=== PATIENT | female | born 1930 | race Caucasian/White ===

== ENCOUNTER 2016-12-29 08:22 | Day surgery (SDC) | payer MEDICARE ==
[~2016-12-29 08:22] MED LIST: ASPIRIN EC81 MG PO; ASPIRIN81 M1 PO; ATENOLOL25 M1 PO; CLARINEX5 MG; EFFEXOR XR150 M1 PO; EFFEXOR XR150 MG; GLIPIZIDE5 M2 PO; GLIPIZIDE5 MG; IBUPROFEN200 MG; LIPITOR20 M1 PO; LISINOPRIL40 M1 PO; MAXZIDE-25 MG1 UDTAB; METFORMIN HCL500 M1 PO; NORVASC5 M2 PO; NORVASC5 MG PO; OMEPRAZOLE20 M3 PO; OMEPRAZOLE20 MG; SIMVASTATIN20 MG PO; SPIRIVA18 MC1 INH; TRAZODONE HCL150 M1 PO; TRAZODONE HCL150 MG; TYLENOL325 M2 PO; TYLENOL325 MG; ULTRAM50 MG PO; VITAMIN E400 UNIT; VYTORIN 10/40 T1 TAB; XANAX0.5 M1 PO; [UNRECOGNIZED DRUG - OTHER] TOP; [UNRECOGNIZED DRUG - OTHER] TP
[2016-12-29] MEDS ORDERED: PEDIA LAX PO (09:22)
[2016-12-29 09:48] LABS: BASO % 0.3 % (0-2); BASO ABSOLUTE COUNT 0.1 tho/cmm (0.0-0.2); EOS % 4.8 % (0-7); EOSINOPHIL ABSOLUTE COUNT 0.7 tho/cmm (0.0-0.7); HCT-HEMATOCRIT 30.4 % (34.0-49.0); HGB-HEMOGLOBIN 9.8 gm/dl (12.0-15.5); IMMATURE GRANULOCYTES ABSOLUTE 0.04 tho/cmm (0-0.03); IMMATURE GRANULOCYTES PERCENT 0.3 % (0-0.3); LYMPH % 17.1 % (20-45); LYMPH ABSOLUTE COUNT 2.5 tho/cmm (0.8-4.5); MCH (MEAN CORPUSCULAR HGB) 30.9 pg (28.0-32.0); MCHC MEAN CORPUSCULAR HGB CONC 32.2 % (32.0-36.0); MCV (MEAN CELL VOLUME) 95.9 fl (82.0-96.0); MEAN PLATELET VOLUME 9.8 cmc (9.4-12.4); MONO % 10.8 % (0-12); MONOCYTE ABSOLUTE COUNT 1.6 tho/cmm (0.0-1.2); NEUTROPHIL ABSOLUTE COUNT 9.6 tho/cmm (1.6-8.0); NEUTROPHIL-AUTOMATED 9.6 tho/cmm (1.6-8.0); NEUTROPHILS % 66.7 % (40-80); PLATELET COUNT 299 tho/cmm (150-450); RED BLOOD COUNT 3.17 mil/cmm (4.00-5.20); WHITE BLOOD COUNT 14.4 tho/cmm (4.0-10.0)
[2016-12-29 10:03] LABS: PROTHROMBIN TIME 11.3 SECONDS (9.0-13.6)
[2016-12-29 10:10] LABS: ANION GAP 15 mmol/L (0-20); BLOOD UREA NITROGEN 54 mg/dl (6-24); CALCIUM 8.5 mg/dl (8.5-10.5); CARBON DIOXIDE-VENOUS 23 mmol/L (22-32); CHLORIDE 103 mmol/l (96-110); CREATININE 6.07 mg/dl (0.50-1.10); GLUCOSE 124 mg/dL (70-110); POTASSIUM 5.4 mmol/L (3.7-5.1); SODIUM 136 mmol/L (135-145); eGFR VALUE FOR BLACK 7 mL/Min
[2017-02-03] MEDS ORDERED: TENORMIN25 M1 PO (14:55)
[2017-02-03] MEDS ORDERED: CALCITRIOL0.25 MC1 PO (14:56)
[2017-02-04] MEDS ORDERED: MELATONIN5 M6 PO (16:50)
[2017-02-04] MEDS ORDERED: TOPROL XL50 M1 PO (16:50)
[2017-02-04] MEDS ORDERED: PROVENTIL HFA6.7 G1 INH (16:54)
[2017-02-04] MEDS ORDERED: VIBRAMYCIN100 M1 PO (16:58)
[2017-02-04] MEDS ORDERED: AMIODARONE HCL200 M1 PO (17:06)
== END 2016-12-29 18:10 ==
LOC: SHSC 08:22 → ORW 11:21 → SHSC 11:57
PROVIDERS: Surgery Vascular Surgery
PROC: 0JH60XZ Insertion of Tunneled Vascular Access Device into Chest Subcutaneous Tissue and Fascia, Open Approach (ICD-10-PCS; principal; 2016-12-29)
PROC: 05HM33Z Insertion of Infusion Device into Right Internal Jugular Vein, Percutaneous Approach (ICD-10-PCS; 2016-12-29)
PROC: B513ZZA Fluoroscopy of Right Jugular Veins, Guidance (ICD-10-PCS; 2016-12-29)
DX: I12.0 Hypertensive chronic kidney disease with stage 5 chronic kidney disease or end stage renal disease (principal); E11.22 Type 2 diabetes mellitus with diabetic chronic kidney disease; N18.6 End stage renal disease; D63.1 Anemia in chronic kidney disease; E66.9 Obesity, unspecified; J44.9 Chronic obstructive pulmonary disease, unspecified; F17.210 Nicotine dependence, cigarettes, uncomplicated; F41.9 Anxiety disorder, unspecified; Z79.82 Long term (current) use of aspirin; Z79.84 Long term (current) use of oral hypoglycemic drugs; Z79.899 Other long term (current) drug therapy; Z88.0 Allergy status to penicillin; Z88.2 Allergy status to sulfonamides; Z91.048 Other nonmedicinal substance allergy status; Z86.73 Personal history of transient ischemic attack (TIA), and cerebral infarction without residual deficits; Z90.49 Acquired absence of other specified parts of digestive tract; Z90.710 Acquired absence of both cervix and uterus; Z98.890 Other specified postprocedural states; Z99.2 Dependence on renal dialysis
CPT/HCPCS: C1750; G0257; J0885; J1644; J3370; J7030

== ENCOUNTER 2017-01-02 10:12 | Inpatient (IN) | payer MEDICARE, OTHER ==
[~2017-01-02 10:12] MED LIST changes: +PEDIA LAX PO
[2017-01-02] MEDS ORDERED: NORVASC5 M2 PO (10:19)
[2017-01-02] MEDS ORDERED: NORVASC2.5 M1 PO (10:20)
[2017-01-02] MEDS ORDERED: ROCALTROL0.25 MC1 PO (10:22)
[2017-01-02] MEDS ORDERED: HEMODIALYSIS IV (10:57)
[2017-01-02] MEDS ORDERED: HEPARIN SO1000 UNIT2 IV (11:02)
[2017-01-02] MEDS ORDERED: VOLTAREN100 G1 TP (11:03)
[2017-01-02] MEDS ORDERED: TYLENOL325 M2 PO (11:03)
[2017-01-02] MEDS ORDERED: VENTOLIN HFA18 G2 INH (11:04)
[2017-01-02] MEDS ORDERED: VENOFER100 MG/52 IVP (11:05)
[2017-01-02] MEDS ORDERED: EPOGEN4000 UNIT/ IVP (11:06)
[2017-01-02] MEDS ORDERED: BENADRYL25 M3 PO (11:08)
[2017-01-02] MEDS ORDERED: DIPHENHYDR50 MG/1 M2 IVP (11:08)
[2017-01-02] MEDS ORDERED: TYLENOL EXTRA500 M1 PO (11:09)
[2017-01-02] MEDS ORDERED: NORCO 5-325 TA1 EACH PO (11:15)
[2017-01-02 11:27] LABS: BASO % 0.2 % (0-2); EOS % 2.2 % (0-7); EOSINOPHIL ABSOLUTE COUNT 0.4 tho/cmm (0.0-0.7); HCT-HEMATOCRIT 29.8 % (34.0-49.0); HGB-HEMOGLOBIN 9.2 gm/dl (12.0-15.5); IMMATURE GRANULOCYTES ABSOLUTE 0.08 tho/cmm (0-0.03); IMMATURE GRANULOCYTES PERCENT 0.5 % (0-0.3); LYMPH % 6.7 % (20-45); LYMPH ABSOLUTE COUNT 1.1 tho/cmm (0.8-4.5); MCH (MEAN CORPUSCULAR HGB) 30.5 pg (28.0-32.0); MCHC MEAN CORPUSCULAR HGB CONC 30.9 % (32.0-36.0); MCV (MEAN CELL VOLUME) 98.7 fl (82.0-96.0); MEAN PLATELET VOLUME 9.4 cmc (9.4-12.4); MONO % 15.2 % (0-12); MONOCYTE ABSOLUTE COUNT 2.4 tho/cmm (0.0-1.2); NEUTROPHIL ABSOLUTE COUNT 11.9 tho/cmm (1.6-8.0); NEUTROPHIL-AUTOMATED 11.9 tho/cmm (1.6-8.0); NEUTROPHILS % 75.2 % (40-80); PLATELET COUNT 259 tho/cmm (150-450); RED BLOOD COUNT 3.02 mil/cmm (4.00-5.20); RED CELL DISTRIBUTION WIDTH 14.6 % (12.4-16.4); WHITE BLOOD COUNT 15.8 tho/cmm (4.0-10.0)
[2017-01-02 11:48] LABS: ALB/GLOB RATIO 0.6 (0.8-2.0); ALBUMIN 2.6 g/dl (3.5-5.0); ALKALINE PHOSPHATASE 62 U/L (33-138); ANION GAP 14 mmol/L (0-20); AST/SGOT 12 U/L (10-40); BILIRUBIN,TOTAL 0.4 mg/dl (0-1.5); BLOOD UREA NITROGEN 25 mg/dl (6-24); CALCIUM 8.1 mg/dl (8.5-10.5); CARBON DIOXIDE-VENOUS 25 mmol/L (22-32); CHLORIDE 98 mmol/l (96-110); CREATININE 4.61 mg/dl (0.50-1.10); GLUCOSE 152 mg/dL (70-110); MAGNESIUM 3.4 mg/dl (1.3-2.6); POTASSIUM 3.8 mmol/L (3.7-5.1); SODIUM 133 mmol/L (135-145); eGFR VALUE FOR BLACK 9 mL/Min
[2017-01-02 11:51] LABS: ALT/SGPT <10 U/L (12-78)
[2017-01-02 12:33] LABS: PROCALCITONIN 0.25 ng/ml (0.05-0.09)
[2017-01-02 14:17] LABS: PROTHROMBIN TIME 12.1 SECONDS (9.0-13.6)
[2017-01-02 14:38] LABS: TSH-THYROID STIMULATING HORM. 1.46 uIU/ml (0.40-3.80)
[2017-01-02 22:51] LABS: ABG CO2 ARTERIAL 27 mmol/L (21-27); ARTERIAL BLD GAS O2 SATURATION 97 % (95-98); ARTERIAL BLOOD GAS PCO2 48 mmHg (32-45); ARTERIAL PO2 89 mmHg (70-100); BICARBONATE 26 mmol/L (21-28); BLOOD GAS BASE EXCESS 0 mM/L (-/+3); PH 7.35 Units (7.35-7.45)
[2017-01-02 22:59] LABS: HCT-HEMATOCRIT 28.1 % (34.0-49.0); HGB-HEMOGLOBIN 8.8 gm/dl (12.0-15.5); MCH (MEAN CORPUSCULAR HGB) 30.9 pg (28.0-32.0); MCHC MEAN CORPUSCULAR HGB CONC 31.3 % (32.0-36.0); MCV (MEAN CELL VOLUME) 98.6 fl (82.0-96.0); MEAN PLATELET VOLUME 9.5 cmc (9.4-12.4); NEUTROPHIL-AUTOMATED 7.6 tho/cmm (1.6-8.0); PLATELET COUNT 276 tho/cmm (150-450); RED BLOOD COUNT 2.85 mil/cmm (4.00-5.20); RED CELL DISTRIBUTION WIDTH 14.6 % (12.4-16.4)
[2017-01-02 23:01] LABS: INR 1.1 INR (0.9-1.1); PROTHROMBIN TIME 12.5 SECONDS (9.0-13.6)
[2017-01-02 23:11] LABS: ALB/GLOB RATIO 0.6 (0.8-2.0); ALBUMIN 2.4 g/dl (3.5-5.0); ALKALINE PHOSPHATASE 59 U/L (33-138); ALT/SGPT 10 U/L (12-78); ANION GAP 14 mmol/L (0-20); AST/SGOT 14 U/L (10-40); BILIRUBIN,TOTAL 0.4 mg/dl (0-1.5); BLOOD UREA NITROGEN 30 mg/dl (6-24); CALCIUM 7.7 mg/dl (8.5-10.5); CARBON DIOXIDE-VENOUS 25 mmol/L (22-32); CHLORIDE 99 mmol/l (96-110); CREATININE 4.95 mg/dl (0.50-1.10); GLUCOSE 162 mg/dL (70-110); POTASSIUM 3.7 mmol/L (3.7-5.1); SODIUM 134 mmol/L (135-145); eGFR VALUE FOR BLACK 9 mL/Min
[2017-01-02 23:29] LABS: PROCALCITONIN 0.25 ng/ml (0.05-0.09)
[2017-01-02 23:33] LABS: BAND % 1 % (0-20); BAND ABSOLUTE COUNT 0.1 tho/cmm (0-2.0); EOSINOPHIL % 7 % (0-7)
[2017-01-03 03:18] LABS: URINE APPEARANCE CLEAR; URINE BILIRUBIN NEGATIVE (NEG); URINE BLOOD LARGE (NEG); URINE COLOR YELLOW; URINE GLUCOSE (UA) NEGATIVE (NEG); URINE KETONE NEGATIVE (NEG); URINE LEUKOCYTE ESTERASE NEGATIVE (NEG); URINE NITRITE NEGATIVE (NEG); URINE PROTEIN NEGATIVE (NEG)
[2017-01-03 03:20] LABS: URINE EPITHELIAL CELLS 0-2 /[HPF] (0-10); URINE RBC 0-2 /[HPF] (0-5); URINE WBC 0-2 /[HPF] (0-5)
[2017-01-03 03:56] LABS: BASO % 0.2 % (0-2); EOSINOPHIL ABSOLUTE COUNT 0.3 tho/cmm (0.0-0.7); HGB-HEMOGLOBIN 8.8 gm/dl (12.0-15.5); IMMATURE GRANULOCYTES ABSOLUTE 0.08 tho/cmm (0-0.03); IMMATURE GRANULOCYTES PERCENT 0.5 % (0-0.3); LYMPH % 5.6 % (20-45); MCH (MEAN CORPUSCULAR HGB) 30.6 pg (28.0-32.0); MCHC MEAN CORPUSCULAR HGB CONC 31.4 % (32.0-36.0); MCV (MEAN CELL VOLUME) 97.2 fl (82.0-96.0); MEAN PLATELET VOLUME 9.5 cmc (9.4-12.4); MONO % 19.8 % (0-12); MONOCYTE ABSOLUTE COUNT 3.4 tho/cmm (0.0-1.2); NEUTROPHIL ABSOLUTE COUNT 12.2 tho/cmm (1.6-8.0); NEUTROPHIL-AUTOMATED 12.2 tho/cmm (1.6-8.0); NEUTROPHILS % 71.9 % (40-80); PLATELET COUNT 267 tho/cmm (150-450); RED BLOOD COUNT 2.88 mil/cmm (4.00-5.20); RED CELL DISTRIBUTION WIDTH 14.2 % (12.4-16.4)
[2017-01-03 04:04] LABS: ALBUMIN 2.3 g/dl (3.5-5.0); ANION GAP 12 mmol/L (0-20); BLOOD UREA NITROGEN 31 mg/dl (6-24); CALCIUM 7.8 mg/dl (8.5-10.5); CARBON DIOXIDE-VENOUS 26 mmol/L (22-32); CHLORIDE 98 mmol/l (96-110); CREATININE 5.17 mg/dl (0.50-1.10); GLUCOSE 229 mg/dL (70-110); MAGNESIUM 3.6 mg/dl (1.3-2.6); PHOSPHOROUS 2.6 mg/dl (2.5-4.9); POTASSIUM 3.7 mmol/L (3.7-5.1); SODIUM 132 mmol/L (135-145); eGFR VALUE FOR BLACK 8 mL/Min
[2017-01-04 03:37] LABS: BASO % 0.3 % (0-2); EOS % 5.8 % (0-7); EOSINOPHIL ABSOLUTE COUNT 0.6 tho/cmm (0.0-0.7); HCT-HEMATOCRIT 26.1 % (34.0-49.0); HGB-HEMOGLOBIN 8.4 gm/dl (12.0-15.5); IMMATURE GRANULOCYTES ABSOLUTE 0.03 tho/cmm (0-0.03); IMMATURE GRANULOCYTES PERCENT 0.3 % (0-0.3); LYMPH % 19.4 % (20-45); LYMPH ABSOLUTE COUNT 2.2 tho/cmm (0.8-4.5); MCH (MEAN CORPUSCULAR HGB) 31.1 pg (28.0-32.0); MCHC MEAN CORPUSCULAR HGB CONC 32.2 % (32.0-36.0); MCV (MEAN CELL VOLUME) 96.7 fl (82.0-96.0); MEAN PLATELET VOLUME 9.3 cmc (9.4-12.4); MONO % 15.2 % (0-12); MONOCYTE ABSOLUTE COUNT 1.7 tho/cmm (0.0-1.2); NEUTROPHIL ABSOLUTE COUNT 6.6 tho/cmm (1.6-8.0); NEUTROPHIL-AUTOMATED 6.6 tho/cmm (1.6-8.0); PLATELET COUNT 261 tho/cmm (150-450); RED CELL DISTRIBUTION WIDTH 13.9 % (12.4-16.4); WHITE BLOOD COUNT 11.1 tho/cmm (4.0-10.0)
[2017-01-04 03:39] LABS: INR 1.1 INR (0.9-1.1)
[2017-01-04 03:52] LABS: ALB/GLOB RATIO 0.5 (0.8-2.0); ALBUMIN 2.1 g/dl (3.5-5.0); ALKALINE PHOSPHATASE 58 U/L (33-138); ALT/SGPT 9 U/L (12-78); ANION GAP 11 mmol/L (0-20); AST/SGOT 14 U/L (10-40); BILIRUBIN,TOTAL 0.3 mg/dl (0-1.5); BLOOD UREA NITROGEN 37 mg/dl (6-24); CARBON DIOXIDE-VENOUS 26 mmol/L (22-32); CHLORIDE 101 mmol/l (96-110); CREATININE 5.82 mg/dl (0.50-1.10); GLUCOSE 148 mg/dL (70-110); PHOSPHOROUS 2.9 mg/dl (2.5-4.9); POTASSIUM 4.3 mmol/L (3.7-5.1); SODIUM 134 mmol/L (135-145); eGFR VALUE FOR BLACK 7 mL/Min
[2017-01-04 05:11] LABS: ABG CO2 ARTERIAL 25 mmol/L (21-27); ARTERIAL BLD GAS O2 SATURATION 97 % (95-98); ARTERIAL BLOOD GAS PCO2 41 mmHg (32-45); ARTERIAL PO2 77 mmHg (70-100); BICARBONATE 24 mmol/L (21-28); BLOOD GAS BASE EXCESS 0 mM/L (-/+3); PH 7.39 Units (7.35-7.45)
--- NOTE | 2017-01-04 19:29 | NUR ---
01/04 @ 1930: MD'S NOTIFIED SEVERAL TIMES FOR SINUS PAUSES 5 SECONDS TO >[address] CEVALLOS X3 ABOUT SINUS PAUSES, ORDER TO CONTINUE TO WATCH PATIENT, HOOKED PATIENT UP TO CRASH CART AT 1707 DUE TO PAUSE >7. WILL EXTERNALLY PACE PATIENT IF HAVING PAUSES >10. WILL CONTINUE TO ASSESS THE NEED FOR PACER. MD AWARE OF ALL PAUSES.
--- NOTE | 2017-01-04 19:31 | NUR ---
01/04 @ 1930: REVIEVED AND AGREED WITH SANTIAGO GRANDE, STUDENT RN CHARTING FOR PATIENT.
[2017-01-05 04:12] LABS: BASO % 0.6 % (0-2); BASO ABSOLUTE COUNT 0.1 tho/cmm (0.0-0.2); EOS % 5.9 % (0-7); EOSINOPHIL ABSOLUTE COUNT 0.6 tho/cmm (0.0-0.7); HCT-HEMATOCRIT 26.6 % (34.0-49.0); HGB-HEMOGLOBIN 8.5 gm/dl (12.0-15.5); LYMPH % 17.4 % (20-45); LYMPH ABSOLUTE COUNT 1.8 tho/cmm (0.8-4.5); MCH (MEAN CORPUSCULAR HGB) 30.9 pg (28.0-32.0); MCV (MEAN CELL VOLUME) 96.7 fl (82.0-96.0); MEAN PLATELET VOLUME 8.9 cmc (9.4-12.4); MONO % 18.3 % (0-12); MONOCYTE ABSOLUTE COUNT 1.9 tho/cmm (0.0-1.2); NEUTROPHIL ABSOLUTE COUNT 5.9 tho/cmm (1.6-8.0); NEUTROPHIL-AUTOMATED 5.9 tho/cmm (1.6-8.0); NEUTROPHILS % 56.8 % (40-80); PLATELET COUNT 294 tho/cmm (150-450); RED BLOOD COUNT 2.75 mil/cmm (4.00-5.20); RED CELL DISTRIBUTION WIDTH 14.2 % (12.4-16.4); WHITE BLOOD COUNT 10.3 tho/cmm (4.0-10.0)
[2017-01-05 04:33] LABS: ALBUMIN 2.3 g/dl (3.5-5.0); ANION GAP 11 mmol/L (0-20); BLOOD UREA NITROGEN 16 mg/dl (6-24); CALCIUM 7.8 mg/dl (8.5-10.5); CARBON DIOXIDE-VENOUS 28 mmol/L (22-32); CHLORIDE 104 mmol/l (96-110); GLUCOSE 136 mg/dL (70-110); MAGNESIUM 2.7 mg/dl (1.3-2.6); PHOSPHOROUS 2.3 mg/dl (2.5-4.9); POTASSIUM 3.9 mmol/L (3.7-5.1); SODIUM 139 mmol/L (135-145); eGFR VALUE FOR BLACK 14 mL/Min
[2017-01-05 04:42] LABS: CREATININE 3.33 mg/dl (0.50-1.10)
--- NOTE | 2017-01-05 18:54 | NUR ---
01/05 @ 1730: CALLED DR. CHRISTOPHER ROMANO TO SEE WHAT PLAN IS FOR PATIENT AND IF HE WAS PLANNING ON SEEING PATIENT TODAY. HE REPLIED 'NO'. DR. ROMANO VERBALIZED WITH ME (KENDALL LUCIA) THAT HE WOULD CONTACT DR. DELACRUZ TO MAKE A PLAN TO TAKE OUT PERMANENT HD CATH AND REPLACE WEDNESDAY. WILL FOLLOW UP TOMORROW WITH KENAN, EP AND RENAL ABOUT PLAN.
--- NOTE | 2017-01-05 18:56 | NUR ---
01/05/17 @ 1856: REVIEVED AND AGREE WITH SANTIAGO GRANDE, STUDENT PATIENT CARE SPECIALIST OF PATIENT. KHARI HALL, RN
[2017-01-06 04:24] LABS: BASO % 0.5 % (0-2); BASO ABSOLUTE COUNT 0.1 tho/cmm (0.0-0.2); EOS % 3.3 % (0-7); EOSINOPHIL ABSOLUTE COUNT 0.3 tho/cmm (0.0-0.7); HCT-HEMATOCRIT 29.1 % (34.0-49.0); HGB-HEMOGLOBIN 9.2 gm/dl (12.0-15.5); IMMATURE GRANULOCYTES ABSOLUTE 0.16 tho/cmm (0-0.03); IMMATURE GRANULOCYTES PERCENT 1.6 % (0-0.3); LYMPH % 16.6 % (20-45); LYMPH ABSOLUTE COUNT 1.7 tho/cmm (0.8-4.5); MCH (MEAN CORPUSCULAR HGB) 30.4 pg (28.0-32.0); MCHC MEAN CORPUSCULAR HGB CONC 31.6 % (32.0-36.0); MEAN PLATELET VOLUME 8.9 cmc (9.4-12.4); MONO % 13.1 % (0-12); MONOCYTE ABSOLUTE COUNT 1.3 tho/cmm (0.0-1.2); NEUTROPHIL ABSOLUTE COUNT 6.6 tho/cmm (1.6-8.0); NEUTROPHIL-AUTOMATED 6.6 tho/cmm (1.6-8.0); NEUTROPHILS % 64.9 % (40-80); PLATELET COUNT 299 tho/cmm (150-450); RED BLOOD COUNT 3.03 mil/cmm (4.00-5.20); RED CELL DISTRIBUTION WIDTH 14.3 % (12.4-16.4); WHITE BLOOD COUNT 10.1 tho/cmm (4.0-10.0)
[2017-01-06 04:34] LABS: ALBUMIN 2.3 g/dl (3.5-5.0); ANION GAP 12 mmol/L (0-20); BLOOD UREA NITROGEN 11 mg/dl (6-24); CARBON DIOXIDE-VENOUS 26 mmol/L (22-32); CHLORIDE 105 mmol/l (96-110); CREATININE 2.58 mg/dl (0.50-1.10); GLUCOSE 124 mg/dL (70-110); PHOSPHOROUS 2.1 mg/dl (2.5-4.9); POTASSIUM 3.7 mmol/L (3.7-5.1); SODIUM 139 mmol/L (135-145); eGFR VALUE FOR BLACK 19 mL/Min
[2017-01-07 05:34] LABS: BASO % 0.6 % (0-2); BASO ABSOLUTE COUNT 0.1 tho/cmm (0.0-0.2); EOS % 7.5 % (0-7); EOSINOPHIL ABSOLUTE COUNT 0.8 tho/cmm (0.0-0.7); HCT-HEMATOCRIT 27.4 % (34.0-49.0); HGB-HEMOGLOBIN 8.5 gm/dl (12.0-15.5); IMMATURE GRANULOCYTES ABSOLUTE 0.06 tho/cmm (0-0.03); IMMATURE GRANULOCYTES PERCENT 0.6 % (0-0.3); LYMPH % 20.3 % (20-45); LYMPH ABSOLUTE COUNT 2.1 tho/cmm (0.8-4.5); MCH (MEAN CORPUSCULAR HGB) 30.4 pg (28.0-32.0); MCV (MEAN CELL VOLUME) 97.9 fl (82.0-96.0); MEAN PLATELET VOLUME 8.8 cmc (9.4-12.4); MONO % 14.1 % (0-12); MONOCYTE ABSOLUTE COUNT 1.5 tho/cmm (0.0-1.2); NEUTROPHIL ABSOLUTE COUNT 5.8 tho/cmm (1.6-8.0); NEUTROPHIL-AUTOMATED 5.8 tho/cmm (1.6-8.0); NEUTROPHILS % 56.9 % (40-80); PLATELET COUNT 300 tho/cmm (150-450); RED CELL DISTRIBUTION WIDTH 14.9 % (12.4-16.4); WHITE BLOOD COUNT 10.3 tho/cmm (4.0-10.0)
[2017-01-07 05:36] LABS: INR 1.1 INR (0.9-1.1); PROTHROMBIN TIME 12.8 SECONDS (9.0-13.6)
[2017-01-07 05:47] LABS: ALBUMIN 2.3 g/dl (3.5-5.0); ANION GAP 11 mmol/L (0-20); BLOOD UREA NITROGEN 21 mg/dl (6-24); CALCIUM 7.8 mg/dl (8.5-10.5); CARBON DIOXIDE-VENOUS 27 mmol/L (22-32); CHLORIDE 106 mmol/l (96-110); GLUCOSE 109 mg/dL (70-110); PHOSPHOROUS 2.8 mg/dl (2.5-4.9); POTASSIUM 3.8 mmol/L (3.7-5.1); SODIUM 140 mmol/L (135-145); eGFR VALUE FOR BLACK 12 mL/Min
[2017-01-07 05:51] LABS: CREATININE 3.74 mg/dl (0.50-1.10)
[2017-01-08] MEDS ORDERED: ELIQUIS2.5 M1 PO (10:18)
[2017-01-08] MEDS ORDERED: AMIODARONE HCL200 M1 PO (10:22)
[2017-02-03] MEDS ORDERED: TENORMIN25 M1 PO (14:55)
[2017-02-03] MEDS ORDERED: CALCITRIOL0.25 MC1 PO (14:56)
[2017-02-04] MEDS ORDERED: TOPROL XL50 M1 PO (16:50)
[2017-02-04] MEDS ORDERED: MELATONIN5 M6 PO (16:50)
[2017-02-04] MEDS ORDERED: PROVENTIL HFA6.7 G1 INH (16:54)
[2017-02-04] MEDS ORDERED: VIBRAMYCIN100 M1 PO (16:58)
[2017-02-04] MEDS ORDERED: AMIODARONE HCL200 M1 PO (17:06)
== END 2017-01-08 15:40 | DRG 242 ==
LOC: EDMED 10:12 → EMR2 13:50 → CCU 15:25 → PCUA 01-07 13:11
PROVIDERS: Family Medicine; Internal Medicine; Internal Medicine Cardiovascular Disease; Internal Medicine Nephrology; Internal Medicine Pulmonary Disease; Radiology Diagnostic Radiology; Registered Nurse; ADMIT Hospitalist
PROC: 5A1D60Z (ICD-10-PCS; 2017-01-04)
PROC: 0JH606Z Insertion of Pacemaker, Dual Chamber into Chest Subcutaneous Tissue and Fascia, Open Approach (ICD-10-PCS; principal; 2017-01-06)
PROC: 02H63JZ Insertion of Pacemaker Lead into Right Atrium, Percutaneous Approach (ICD-10-PCS; principal; 2017-01-06)
PROC: 02HK3JZ Insertion of Pacemaker Lead into Right Ventricle, Percutaneous Approach (ICD-10-PCS; principal; 2017-01-06)
DX: I49.5 Sick sinus syndrome (principal); N18.6 End stage renal disease; I12.0 Hypertensive chronic kidney disease with stage 5 chronic kidney disease or end stage renal disease; E11.22 Type 2 diabetes mellitus with diabetic chronic kidney disease; E87.1 Hypo-osmolality and hyponatremia; I48.0 Paroxysmal atrial fibrillation; D63.1 Anemia in chronic kidney disease; F41.9 Anxiety disorder, unspecified; E78.5 Hyperlipidemia, unspecified; F17.200 Nicotine dependence, unspecified, uncomplicated; Z99.2 Dependence on renal dialysis; Z86.73 Personal history of transient ischemic attack (TIA), and cerebral infarction without residual deficits; Z88.0 Allergy status to penicillin; Z88.2 Allergy status to sulfonamides; Z88.6 Allergy status to analgesic agent; Z79.82 Long term (current) use of aspirin; Z79.891 Long term (current) use of opiate analgesic; Z79.899 Other long term (current) drug therapy
CPT/HCPCS: C1750; C1751; C1785; C1898; G8978-GP-CL; G8979-GP-CK; J0282; J0690; J0885; J1265; J1644; J1815; J1956; J2250; J2405; J3010; J3370; J7030; J7040; J7050; P9045

== ENCOUNTER 2017-02-05 05:16 | Day surgery (SDC) | payer MEDICARE ==
[~2017-02-05 05:16] MED LIST changes: +AMIODARONE HCL200 M1 PO; +BENADRYL25 M3 PO; +CALCITRIOL0.25 MC1 PO; +DIPHENHYDR50 MG/1 M2 IVP; +ELIQUIS2.5 M1 PO; +EPOGEN4000 UNIT/ IVP; +HEMODIALYSIS IV; +HEPARIN SO1000 UNIT2 IV; +MELATONIN5 M6 PO; +NORCO 5-325 TA1 EACH PO; +NORVASC2.5 M1 PO; +PROVENTIL HFA6.7 G1 INH; +ROCALTROL0.25 MC1 PO; +TENORMIN25 M1 PO; +TOPROL XL50 M1 PO; +TYLENOL EXTRA500 M1 PO; +VENOFER100 MG/52 IVP; +VENTOLIN HFA18 G2 INH; +VIBRAMYCIN100 M1 PO; +VOLTAREN100 G1 TP
[2017-02-05 07:00] LABS: BASO % 0.5 % (0-2); BASO ABSOLUTE COUNT 0.1 tho/cmm (0.0-0.2); EOS % 3.2 % (0-7); EOSINOPHIL ABSOLUTE COUNT 0.4 tho/cmm (0.0-0.7); HCT-HEMATOCRIT 35.7 % (34.0-49.0); HGB-HEMOGLOBIN 11.2 gm/dl (12.0-15.5); IMMATURE GRANULOCYTES ABSOLUTE 0.04 tho/cmm (0-0.03); IMMATURE GRANULOCYTES PERCENT 0.4 % (0-0.3); LYMPH % 19.1 % (20-45); LYMPH ABSOLUTE COUNT 2.2 tho/cmm (0.8-4.5); MCH (MEAN CORPUSCULAR HGB) 31.5 pg (28.0-32.0); MCHC MEAN CORPUSCULAR HGB CONC 31.4 % (32.0-36.0); MCV (MEAN CELL VOLUME) 100.6 fl (82.0-96.0); MEAN PLATELET VOLUME 9.6 cmc (9.4-12.4); MONO % 14.1 % (0-12); MONOCYTE ABSOLUTE COUNT 1.6 tho/cmm (0.0-1.2); NEUTROPHIL ABSOLUTE COUNT 7.1 tho/cmm (1.6-8.0); NEUTROPHIL-AUTOMATED 7.1 tho/cmm (1.6-8.0); NEUTROPHILS % 62.7 % (40-80); PLATELET COUNT 291 tho/cmm (150-450); RED BLOOD COUNT 3.55 mil/cmm (4.00-5.20); RED CELL DISTRIBUTION WIDTH 15.2 % (12.4-16.4); WHITE BLOOD COUNT 11.4 tho/cmm (4.0-10.0)
[2017-02-05 07:05] LABS: INR 1.1 INR (0.9-1.1); PROTHROMBIN TIME 12.4 SECONDS (9.0-13.6)
[2017-02-05 07:10] LABS: ANION GAP 12 mmol/L (0-20); BLOOD UREA NITROGEN 27 mg/dl (6-24); CALCIUM 8.6 mg/dl (8.5-10.5); CARBON DIOXIDE-VENOUS 31 mmol/L (22-32); CHLORIDE 100 mmol/l (96-110); CREATININE 3.14 mg/dl (0.50-1.10); GLUCOSE 119 mg/dL (70-110); POTASSIUM 4.1 mmol/L (3.7-5.1); SODIUM 139 mmol/L (135-145); eGFR VALUE FOR BLACK 15 mL/Min
== END 2017-02-05 11:40 ==
LOC: SRG 05:16 → SHSC 05:17 → ORW 07:20 → PACU 09:17 → SHSC 09:55
PROVIDERS: Surgery Vascular Surgery
PROC: 03WY07Z Revision of Autologous Tissue Substitute in Upper Artery, Open Approach (ICD-10-PCS; principal; 2017-02-05)
DX: T82.898A Other specified complication of vascular prosthetic devices, implants and grafts, initial encounter (principal); I12.9 Hypertensive chronic kidney disease with stage 1 through stage 4 chronic kidney disease, or unspecified chronic kidney disease; E11.22 Type 2 diabetes mellitus with diabetic chronic kidney disease; N18.9 Chronic kidney disease, unspecified; I48.91 Unspecified atrial fibrillation; F41.9 Anxiety disorder, unspecified; F32.9 Major depressive disorder, single episode, unspecified; J44.9 Chronic obstructive pulmonary disease, unspecified; K21.9 Gastro-esophageal reflux disease without esophagitis; E78.5 Hyperlipidemia, unspecified; Z79.82 Long term (current) use of aspirin; Z79.84 Long term (current) use of oral hypoglycemic drugs; Z79.899 Other long term (current) drug therapy; Z88.0 Allergy status to penicillin; Z88.2 Allergy status to sulfonamides; Z91.048 Other nonmedicinal substance allergy status; Z87.891 Personal history of nicotine dependence; Z86.73 Personal history of transient ischemic attack (TIA), and cerebral infarction without residual deficits; Z90.49 Acquired absence of other specified parts of digestive tract; Z90.710 Acquired absence of both cervix and uterus; Z98.890 Other specified postprocedural states; Z99.2 Dependence on renal dialysis
CPT/HCPCS: J1644; J3370; J7030